=== PATIENT | male | born 1990 | race Two or more races ===

== ENCOUNTER 2023-10-22 18:38 | Emergency (ER) | payer OTHER ==
[~2023-10-22] VITALS: Ht 172.7 cm; Wt 0.7 kg
[~2023-10-22 18:38] MED LIST: GABA800T9 PO; SERT-440 PO; VALP250C48 PO
[2023-10-22 19:49] VITALS: BP 108/71; PULSE 105; RESP 20; TEMP 97.1
== END 2023-10-22 21:36 | disposition left against medical advice (07) ==
LOC: EMS 18:38
DX: R56.9 Unspecified convulsions (principal); F12.90 Cannabis use, unspecified, uncomplicated; F15.10 Other stimulant abuse, uncomplicated; F17.210 Nicotine dependence, cigarettes, uncomplicated; Z53.21 Procedure and treatment not carried out due to patient leaving prior to being seen by health care provider

== ENCOUNTER 2024-01-10 07:24 | Emergency (ER) | payer OTHER ==
[~2024-01-10] VITALS: Ht 175.3 cm; Wt 73.5 kg
[~2024-01-10 07:24] MED LIST changes: +GABA-1554 PO; -GABA800T9 PO
[2024-01-10 07:45] VITALS: TEMP 97.9
[2024-01-10] MEDS ORDERED: DIVA-85 PO (07:46)
[2024-01-10] MEDS ORDERED: ESCI-8 PO (07:46)
[2024-01-10] MEDS ORDERED: SERT-158 PO (07:46)
[2024-01-10] MEDS: DIVALPROEX SODIUM 500 MG ER TABLET PO ONE (08:09)
[2024-01-10 08:26] LABS: BASOPHILS % (AUTO) 0.6 % (0.0-2.0); EOSINOPHILS % (AUTO) 1.3 % (1.0-6.0); HEMATOCRIT 45.8 % (41-53); HEMOGLOBIN 14.7 g/dL (13.5-17.5); LYMPHOCYTES # (AUTO) 1.7 K/uL (1.0-4.8); LYMPHOCYTES % (AUTO) 19.7 % (22.0-44.0); MEAN CORPUSCULAR HEMOGLOBIN 27.2 pg (26.0-34.0); MEAN CORPUSCULAR VOLUME 85 fL (80-100); MONOCYTES # (AUTO) 0.7 K/uL (0.1-1.0); NEUTROPHILS % (AUTO) 70.4 % (40.0-70.0); PLATELET COUNT (AUTO) 358 K/uL (150-450); RED BLOOD CELL COUNT(AUTO) 5.39 MIL/uL (4.50-5.90); RED CELL DISTRIBUTION WIDTH 14.4 % (11.5-14.5); WHITE BLOOD COUNT (AUTO) 8.5 K/uL (4.5-11.0)
[2024-01-10 08:38] LABS: ANION GAP 10 mmol/L (8-16); CARBON DIOXIDE 25 mmol/L (22-29); CHLORIDE 103 mmol/L (98-107); CREATININE 0.92 mg/dL (0.60-1.30); GLOMERULAR FILTR. RATE CALC > 60 mL/min (>60); GLUCOSE,RANDOM 75 mg/dL (70-110); POTASSIUM 4.2 mmol/L (3.5-5.1); SODIUM SERUM 138 mmol/L (136-145); UREA NITROGEN, BLOOD 16 mg/dL (7-18)
[2024-01-10 09:07] LABS: VALPROIC ACID < 3 mcg/mL (50-100)
[2024-01-10] MEDS: DIVALPROEX SODIUM 250 MG ER TABLET PO ONE (10:04)
[2024-01-10] MEDS: ONDANSETRON 4 MG TABLET PO ONE (10:04)
[2024-01-10 11:27] VITALS: BP 110/75; PULSE 71; RESP 20; O2SAT 98
== END 2024-01-10 11:28 | disposition home or self-care (01) ==
LOC: EMS 07:24
DX: G40.909 Epilepsy, unspecified, not intractable, without status epilepticus (principal); F17.210 Nicotine dependence, cigarettes, uncomplicated; F12.90 Cannabis use, unspecified, uncomplicated; F15.90 Other stimulant use, unspecified, uncomplicated; Z88.0 Allergy status to penicillin
CPT/HCPCS: 99284; 80048; 80164; 85025; 36415; Q0162